=== PATIENT | female | born 1995 | race African-American/Black ===

== ENCOUNTER 2022-03-17 09:12 | Emergency (ER) | payer OTHER ==
[~2022-03-17] VITALS: Ht 162.6 cm; Wt 93.0 kg
[2022-03-17 10:10] LABS: BASOPHILS % 1.1 % (0.0-2.0); EOSINOPHILS % 3.4 % (0.0-5.0); HEMATOCRIT. 39.4 % (36.0-48.0); HEMOGLOBIN. 12.5 g/dL (12.0-16.0); LYMPHOCYTES % 40.1 % (20.0-50.0); MEAN CORPUSCULAR HEMOGLOBIN 24.9 pg (28.0-32.0); MEAN CORPUSCULAR VOLUME 78.6 fL (81.0-99.0); MEAN PLATELET VOLUME 9.3 fl (7.4-10.4); MONOCYTES % 7.9 % (2.0-8.0); NEUTROPHILS % 47.5 % (40.0-76.0); PLATELET 298 x1000/uL (130-400); RED BLOOD CELL COUNT 5.02 mill/uL (4.2-5.4); RED CELL DISTRIBUTION WIDTH 15.9 % (11.6-14.6)
[2022-03-17 10:11] LABS: CHLORIDE 105 mEq/L (98-107)
[2022-03-17] MEDS ORDERED: KETOROLAC 15MG/ML VIAL IV ONE (11:00)
[2022-03-17] MEDS ORDERED: DIPHENHYDRAMINE 25MG CAPSULE PO ONE (11:00)
[2022-03-17 11:13] VITALS: BP 124/90
== END 2022-03-17 11:15 | disposition home or self-care (01) ==
LOC: ER 09:12
DX: R07.89 Other chest pain (principal); Z68.35 Body mass index [BMI] 35.0-35.9, adult; Z98.890 Other specified postprocedural states; Z86.39 Personal history of other endocrine, nutritional and metabolic disease
CPT/HCPCS: 36415; 71045; 80053; 81025; 84484; 85025; 93005; 96374; 99285; J1885; Q0163